=== PATIENT | female | born 1985 | race Asian ===

== ENCOUNTER 2018-12-27 12:30 | Outpatient (CLI) | payer OTHER ==
[~2018-12-27] VITALS: Ht 157.5 cm; Wt 91.8 kg
[~2018-12-27 12:30] MED LIST: ASPI-496 PO; LABE100T6 PO; OXYC-302 PO; PREN1TAB28 PO
[2018-12-27 13:05] LABS: MICROSCOPIC NOT IND
[2018-12-27] MEDS ORDERED: CHOL10003 PO (13:18)
[2018-12-27 13:28] LABS: BASOPHILS # (AUTO) 0.01 x10^3/uL (0-0.1); BASOPHILS % (AUTO) 0 % (0-1); EOSINOPHILS # (AUTO) 0.05 x10^3/uL (0-0.4); EOSINOPHILS % (AUTO) 1 % (1-7); LYMPHOCYTES # (AUTO) 1.75 x10^3/uL (1-3.4); LYMPHOCYTES % (AUTO) 20 % (22-44); MD NO; MEAN CORPUSCULAR HEMOGLOBIN 30.1 pg (27.0-34.8); MEAN CORPUSCULAR HGB CONC 33.7 g/dL (32.4-35.8); MEAN CORPUSCULAR VOLUME 89.2 fL (80-100); MEAN PLATELET VOLUME 10.8 fL (7.4-10.4); MONOCYTES # (AUTO) 0.46 x10^3/uL (0.2-0.8); MONOCYTES % (AUTO) 5 % (2-9); NEUTROPHILS # (AUTO) 6.53 x10^3/uL (1.8-6.8); NEUTROPHILS % (AUTO) 74 % (42-75); PLATELET COUNT 178 x10^3/uL (130-400); RED BLOOD COUNT 4.53 x10^6/uL (3.82-5.3); RED CELL DISTRIBUTION WIDTH 12.7 % (9.6-15.2)
[2018-12-27 13:36] LABS: ALANINE AMINOTRANSFERASE 25 U/L (12-78); ALBUMIN 2.8 g/dL (3.4-5.0); ANION GAP 10 mmol/L (5-15); CALCIUM 8.9 mg/dL (8.5-10.1); CHLORIDE 108 mmol/L (98-107); CREATININE 0.58 mg/dL (0.55-1.02)
[2018-12-27 13:38] LABS: ALKALINE PHOSPHATASE 129 U/L (45-117); BILIRUBIN,TOTAL 0.4 mg/dL (0.2-1.0); TOTAL PROTEIN 6.6 g/dL (6.4-8.2)
[2018-12-27 13:42] LABS: PROTEIN/CREATININE RATIO,URINE < 115 (0-200); TOTAL PROTEIN,URINE RANDOM < 5 mg/dL (0-12)
== END 2018-12-27 14:30 | disposition home or self-care (01) ==
LOC: LDOP 12:30
PROVIDERS: ATTEND Obstetrics & Gynecology
DX: Z34.93 Encounter for supervision of normal pregnancy, unspecified, third trimester (principal); Z3A.34 34 weeks gestation of pregnancy
CPT/HCPCS: 36415; 59025; 80053; 81003; 82570; 84156; 84550; 85025; 99201; G0463

== ENCOUNTER 2019-01-16 12:01 | Outpatient (CLI) | payer OTHER ==
[~2019-01-16] VITALS: Ht 157.5 cm; Wt 92.7 kg
[2019-01-16 12:17] VITALS: BP 123/81
== END 2019-01-16 14:17 | disposition home or self-care (01) ==
LOC: LDOP 12:01
PROVIDERS: ATTEND Obstetrics & Gynecology
DX: O36.8130 Decreased fetal movements, third trimester, not applicable or unspecified (principal); Z3A.37 37 weeks gestation of pregnancy
CPT/HCPCS: 59025; 76819; 99211; G0463

== ENCOUNTER 2019-01-18 05:46 | Inpatient (IN) | payer OTHER ==
[~2019-01-18] VITALS: Ht 157.5 cm; Wt 92.7 kg
[2019-01-21 08:10] VITALS: BP 128/90
== END 2019-01-21 13:15 | disposition home or self-care (01) | DRG 788 ==
LOC: LDIP 05:46 → 2NW 11:49
PROVIDERS: ADMIT Obstetrics & Gynecology; ATTEND Obstetrics & Gynecology
PROC: 10D00Z1 Extraction of Products of Conception, Low, Open Approach (ICD-10-PCS; principal; 2019-01-18)
DX: O34.211 Maternal care for low transverse scar from previous cesarean delivery (principal); O13.4 Gestational [pregnancy-induced] hypertension without significant proteinuria, complicating childbirth; O36.5930 Maternal care for other known or suspected poor fetal growth, third trimester, not applicable or unspecified; O36.8130 Decreased fetal movements, third trimester, not applicable or unspecified; Z3A.37 37 weeks gestation of pregnancy; Z37.0 Single live birth; Z88.2 Allergy status to sulfonamides
CPT/HCPCS: 36415; 85025; 86850; 86900; G0378; J0690; J1100; J1170; J1885; J2175; J2405; J3010; J2370; J2590; J2765; J7120

== ENCOUNTER → 2020-11-19 | Outpatient (CLI) | payer OTHER ==
[~2020-11-19] MED LIST changes: +CHOL10003 PO; +DOCU-131 PO; +IBUP-1222 PO; -OXYC-302 PO; +OXYC1TAB14 PO; +PANT20TA4 PO; +RIZA10TA20 PO
== END | disposition home or self-care (01) ==
LOC: STAR 15:27
PROVIDERS: ATTEND Surgery
DX: Z20.822 Contact with and (suspected) exposure to COVID-19 (principal); K64.9 Unspecified hemorrhoids
CPT/HCPCS: U0003; U0005

== ENCOUNTER 2020-11-23 06:15 | Day surgery (SDC) | payer OTHER ==
[~2020-11-23] VITALS: Ht 157.5 cm; Wt 86.8 kg
[2020-11-23 06:45] VITALS: BP 120/83
[2020-11-23] MEDS ORDERED: EPINEPHRINE 1 MG/ML, 1ML ONE (06:49)
[2020-11-23] MEDS ORDERED: BUPIVACAINE/PF 0.5% ONE (06:49)
[2020-11-23 07:00] LABS: HCG UR SG 1.018 (1.003-1.030)
[2020-11-23] MEDS ORDERED: LACTATED RINGERS 1,000 ML IV SCH (07:00)
[2020-11-23] MEDS ORDERED: CHLORHEXIDINE 15 ML UDC PO ONE (07:00)
[2020-11-23] MEDS ORDERED: MIDAZOLAM 1 MG/ML, 2ML ONE (07:10)
[2020-11-23] MEDS ORDERED: HYDROmorphone 1 MG/ML, 1ML INJ ONE (07:10)
[2020-11-23] MEDS ORDERED: FENTANYL PF 100 MCG/2ML ONE (07:12)
[2020-11-23] MEDS ORDERED: FENTANYL PF 100 MCG/2ML IV PRN (07:30)
[2020-11-23] MEDS ORDERED: ACETAMINOPHEN 325 MG TABLET PO PRN (07:30)
[2020-11-23] MEDS ORDERED: DIAZEPAM 5 MG/ML, 2ML IVPush PRN (07:30)
[2020-11-23] MEDS ORDERED: KETOROLAC 30 MG/1 ML IVPush PRN (07:30)
[2020-11-23] MEDS ORDERED: HALOPERIDOL 5 MG/ML IV PRN (07:30)
[2020-11-23] MEDS ORDERED: METOPROLOL 1 MG/ML, 5ML IV PRN (07:30)
[2020-11-23] MEDS ORDERED: hydrALAzine 20 MG/ML, 1ML IV PRN (07:30)
[2020-11-23] MEDS ORDERED: HYDROmorphone 1 MG/ML, 1ML INJ IVPush PRN (07:30)
[2020-11-23] MEDS ORDERED: MEPERIDINE/PF 25MG/0.5ML IVPush PRN (07:30)
[2020-11-23] MEDS ORDERED: EPHEDRINE 50 MG/ML, 1ML IVPush PRN (07:30)
[2020-11-23] MEDS ORDERED: PROMETHAZINE 25 MG/ML, 1ML IVPush PRN (07:30)
[2020-11-23] MEDS ORDERED: LABETALOL 5MG/ML, 20ML IV PRN (07:30)
[2020-11-23] MEDS ORDERED: DIPHENHYDRAMINE 50 MG/ML, 1ML IVPush PRN (07:30)
[2020-11-23] MEDS ORDERED: METOCLOPRAMIDE 5 MG/ML, 2ML IVPush PRN (07:30)
[2020-11-23] MEDS ORDERED: ONDANSETRON 2MG/ML, 2ML IVPush PRN (07:30)
[2020-11-23] MEDS ORDERED: OXYcodone 5 MG/5 ML ORAL.SOL UDC PO PRN (07:30)
[2020-11-23] MEDS ORDERED: PROPOFOL 10 MG/ML, 20ML ONE (07:37)
[2020-11-23] MEDS ORDERED: CEFOTETAN 2 GM ONE (07:37)
[2020-11-23] MEDS ORDERED: ONDANSETRON 2MG/ML, 2ML ONE (07:37)
[2020-11-23] MEDS ORDERED: ROCURONIUM 10 MG/ML,10ML ONE (07:37)
[2020-11-23] MEDS ORDERED: KETOROLAC 30 MG/1 ML ONE (07:37)
[2020-11-23] MEDS ORDERED: DEXAMETHASONE 4 MG/ML, 1ML ONE (07:37)
[2020-11-23] MEDS ORDERED: SUCCINYLCHOLINE 20 MG/ML, 10ML ONE (07:37)
[2020-11-23] MEDS ORDERED: BUPIVACAINE LIPOSOME/PF 10ML INFIL ONE ×2 (08:00→08:30)
[2020-11-23] MEDS ORDERED: OXYC5TAB2 PO (08:37)
== END 2020-11-23 11:09 | disposition home or self-care (01) ==
LOC: OUT 06:15
PROVIDERS: ATTEND Surgery
DX: K64.2 Third degree hemorrhoids (principal); K64.4 Residual hemorrhoidal skin tags; G43.909 Migraine, unspecified, not intractable, without status migrainosus; E66.9 Obesity, unspecified; Z88.2 Allergy status to sulfonamides
CPT/HCPCS: 46260; 81025; 88304; J0171; J0330; J1100; J1170; J1885; J2250; J2405; J2704; J3010; J7120